=== PATIENT | male | born 1935 | race Caucasian/White ===

== ENCOUNTER 2018-12-28 20:25 | Inpatient (IN) | payer OTHER ==
[~2018-12-28] VITALS: Ht 180.3 cm; Wt 76.6 kg
[2018-12-28 21:04] LABS: BASOPHILS ABSOLUTE AUTO 0.02 K/mm3 (0.00-0.23); BASOPHILS PERCENT AUTO 0 % (0-2); EOSINOPHILS ABSOLUTE AUTO 0.02 K/mm3 (0.00-0.68); EOSINOPHILS PERCENT AUTO 0 % (0-6); Hematocrit 40.7 % (37.0-53.0); Hemoglobin 13.2 g/dL (13.5-17.5); IMMATURE GRAN ABSOLUTE AUTO 0.15 K/mm3 (0.00-0.10); IMMATURE GRAN PERCENT AUTO 2 % (0-1); LYMPHOCYTES ABSOLUTE AUTO 0.96 K/mm3 (0.84-5.20); LYMPHOCYTES PERCENT AUTO 11 % (21-46); MONOCYTES ABSOLUTE AUTO 0.34 K/mm3 (0.16-1.47); MONOCYTES PERCENT AUTO 4 % (4-13); Mean Corpuscular HGB 28.3 pg (26.0-34.0); Mean Corpuscular HGB Conc 32.4 g/dL (31.5-36.5); Mean Corpuscular Volume 87 fL (80-100); Mean Platelet Volume 10.7 fL (9.1-12.4); NEUTROPHILS PERCENT AUTO 83 % (41-73); Platelet Count 172 K/mm3 (150-400); RDW Coefficient Variation 14.6 % (11.7-14.2); RDW Standard Deviation 46.5 fL (35.1-46.3); Red Blood Cell Count 4.66 M/mm3 (4.30-5.90); White Blood Cell Count 8.89 K/mm3 (4.00-11.30)
[2018-12-28 21:25] LABS: Alanine Aminotransfer (ALT/SGP 17 U/L (12-78); Albumin, Blood 3.9 g/dL (3.4-5.0); Albumin/Globulin Ratio 1.2 (0.8-1.8); Alk Phos 158 U/L (50-136); Anion Gap 7 mmol/L (6-16); Aspartate Aminotrans (AST/SGOT 20 U/L (12-37); Blood Urea Nitrogen 21 mg/dL (8-24); Bun/Creatinine Ratio 28.1 (12.0-20.0); CO2, Blood 29 mmol/L (21-32); Calcium, Blood 9.2 mg/dL (8.5-10.1); Chloride, Blood 99 mmol/L (98-108); Creatinine, Blood 0.75 mg/dL (0.60-1.20); Globulin, Blood 3.3 g/dL (2.2-4.0); Glomerular Filtration Rate >60 (60-); Glucose, Blood 160 mg/dL (70-99); Potassium, Blood 4.2 mmol/L (3.5-5.5); Sodium, Blood 135 mmol/L (136-145); Total Protein, Blood 7.2 g/dL (6.4-8.2); Troponin I 0.077 ng/mL (0.000-0.040)
[2018-12-28] MEDS ORDERED: ASCO500 (22:00)
[2018-12-28] MEDS ORDERED: CARV6.25 PO (22:00)
[2018-12-28] MEDS ORDERED: CYAN500 PO (22:01)
[2018-12-28] MEDS ORDERED: FINA5 PO (22:02)
[2018-12-28] MEDS ORDERED: FISH OIL 1,001000 MG PO (22:02)
[2018-12-28] MEDS ORDERED: FURO20 PO (22:03)
[2018-12-28] MEDS ORDERED: FOLI1 PO (22:03)
[2018-12-28] MEDS ORDERED: GINKGO60 MG PO (22:04)
[2018-12-28] MEDS ORDERED: LISI20 PO (22:04)
[2018-12-28] MEDS ORDERED: Saw Palmetto160 MG PO (22:05)
[2018-12-28] MEDS ORDERED: POTCHL20ER PO (22:05)
[2018-12-28] MEDS ORDERED: TAMS.4ER PO (22:06)
[2018-12-28] MEDS ORDERED: BRAIN MIGHT-DH1 EACH PO (22:06)
[2018-12-28] MEDS ORDERED: ZINC220 PO (22:07)
[2018-12-29 03:26] LABS: Source, Urine Catheter
[2018-12-29 03:29] LABS: Bilirubin, Urine Neg (Neg); Blood, Urine 1+ (Neg); Glucose Qualitative, Urine Neg (Neg); Ketones, Urine Neg (Neg); Leukocyte Esterase, Urine Neg (Neg); Nitrite, Urine Neg (Neg); Protein, Urine 3+ (Neg); Urobilinogen, Urine NORM (Normal)
[2018-12-29 03:34] LABS: Appearance, Urine Clear (Clear); Color, Urine Yellow (P-Yellow)
[2018-12-29 03:35] LABS: Amorphous Light (0-Heavy); Bacteria Few /hpf; Calcium Oxalate Crystals Few /hpf; Mucus Light (0-Heavy); Red Blood Cells, Urine 0-2 /hpf (0-2); Squamous Epithelial Cells Not Seen /hpf (Few); White Blood Cells, Urine 0-2 /hpf (0-5)
[2018-12-29 03:36] LABS: Hyaline Casts 0-2 /lpf (0-2)
[2018-12-29 04:27] LABS: Hematocrit 38.5 % (37.0-53.0); Hemoglobin 12.3 g/dL (13.5-17.5); Mean Corpuscular HGB 28.6 pg (26.0-34.0); Mean Corpuscular HGB Conc 31.9 g/dL (31.5-36.5); Mean Platelet Volume 10.5 fL (9.1-12.4); Platelet Count 141 K/mm3 (150-400); RDW Coefficient Variation 14.7 % (11.7-14.2); RDW Standard Deviation 48.6 fL (35.1-46.3)
[2018-12-29 04:30] LABS: Mean Corpuscular Volume 90 fL (80-100)
--- NOTE | 2018-12-29 04:47 | NUR ---
PT. WITH IV TO THE LAC, SL. REPORT RECEIVED IV SITE WAS IN THE RIGHT.
[2018-12-29 04:48] LABS: Alanine Aminotransfer (ALT/SGP 16 U/L (12-78); Albumin, Blood 3.5 g/dL (3.4-5.0); Albumin/Globulin Ratio 1.1 (0.8-1.8); Alk Phos 153 U/L (50-136); Anion Gap 7 mmol/L (6-16); Aspartate Aminotrans (AST/SGOT 35 U/L (12-37); Bilirubin, Total 0.7 mg/dL (0.1-1.0); Blood Urea Nitrogen 21 mg/dL (8-24); CO2, Blood 29 mmol/L (21-32); Calcium, Blood 8.9 mg/dL (8.5-10.1); Chloride, Blood 101 mmol/L (98-108); Globulin, Blood 3.2 g/dL (2.2-4.0); Glomerular Filtration Rate >60 (60-); Glucose, Blood 135 mg/dL (70-99); Sodium, Blood 137 mmol/L (136-145); Total Protein, Blood 6.7 g/dL (6.4-8.2)
[2018-12-29 04:54] LABS: Troponin I 0.541 ng/mL (0.000-0.040)
--- NOTE | 2018-12-29 05:16 | NUR ---
RECEIVED CALL FROM LAB WITH CRITICAL TROPONIN OF 0.541. PT. IS ASYMPTOMATIC, NO APPARENT DISTRESS NOTED. DR. KOEHLER NOTIFIED, NO ORDERS RECEIVED. CHARGE NURSE TIFFANIE HUERTA RN MADE AWARE. WILL CONT TO MONITOR.
--- NOTE | 2018-12-29 05:59 | NUR ---
PT. ARRIVED FROM ER @0100 VIA STRETCHER INTO ROOM 306. TRANSFERRED INTO BED BY NURSING STAFF, PER PT UNABLE TO STAND DUE TO WEAKNESS AND BACK PAIN. PT. A&OX3, STATED SELF CATHS AT HOME DUE TO RETENTION AND WOULD NEED A INTERIANO CATHETER TO BE IN PLACE WHILE IN THE HOSPITAL. ORDER FOR INTERIANO CATHETER INSERTION RECEIVED BY DR. KOEHLER. PT. WITH ELEVATED BP OF 198/112, NO APPARENT DISTRESS NOTED. MEDICATED WITH HYDRALAZINE PER EMAR. REPEAT BP OF 159/92. PT. RESTING COMFORTABLY IN BED, NO APPARENT DISTRESS NOTED. DENIES NEEDS AT THIS TIME. DAUGHTER AT BEDSIDE. CALL LIGHT WITHIN REACH AND SIDE RAILS UP X2. WILL CONT TO MONITOR.
--- NOTE | 2018-12-29 11:45 | NUR ---
ASSUMED CARE / DR. CUELLAR / UPDATE: REPORT RECEIVED FROM MEDICAL FLOOR RN, PT ARRIVED TO ICU-14 AT APPROX 1005 FOLLOWING CTA IMAGING STUDY. ON ARRIVAL, THE PT IS A&O, PLEASANT & COOPERATIVE. HE HAS CONTINUED C/O UPPER BACK PAIN THAT HE STS IS CHRONIC & EXACERBATED BY THE MULTIPLE TRANSFERS FROM [facility] TO [facility], HOSPITAL ADMISSION, ETC. BP IS TRENDING DOWN, NITRO HELD UNTIL DR. CUELLAR AWARE. HEPARIN HELD UNTIL CTA RESULTED. PROVIDER AT BEDSIDE TO SEE PT. HE HAS SPOKEN W/ THE RADIOLOGIST REGARDING CTA RESULTS. 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 NITRO & HEPARIN DRIPS HAVE BEEN D/C'd & PALLIATIVE CARE CONSULT HAS BEEN PLACED. CONSULT FOR CARDIOLOGY HAS ALSO BEEN D/C'd & DR. JARRELL HAS BEEN NOTIFIED OF THIS CANCELLATION BY DR. CUELLAR. WILL CONTINUE TO MONITOR & UPDATE NEEDED.
[2018-12-29 12:11] LABS: Prothrombin Time Results 10.6 Sec (9.7-11.5)
--- NOTE | 2018-12-29 12:38 | NUR ---
PT RESTING QUIETLY WITH EYES CLOSED DURING SHIFT REPORT. PT ADMITTED FOR HYPERTENSION. PER SHIFT REPORT, PT C/O CP X 2DAYS WITH SOB. HX OF HTN AND FL. PT MEDICATED PRIOR TO START OF SHIFT FOR C/O BACK PAIN. PT LATER REPORTED THAT HE HAD MIDSTERNUM PAIN ORIGINALLY BUT NOW RADIATING IN HIS BACK. CRITICAL TROPONIN CALLED TO NOC SHIFT. NO NEW ORDERS. INTERIANO TO GRAVITY; PATENT. PT REPORTED THAT HE SELF CATH'S AT HOME, THEREFORE INTERIANO PLACED IN ER. PT DECLINED TO EAT BREAKFAST HE DID NOT WANT TO HAVE TO MOVE TO HAVE A BM. PT'S DAUGHTERS TO RM AFTER START OF SHIFT, REPORTING PT WITH HX OF CHF WELL. IV LASIX GIVEN WITH AM MEDS. DR CUELLAR IN TO SEE PT THIS AM. NEW ORDERS RECEIVED. PT TO CT TO R/O AORTIC DISSECTION, THEN TO TX TO ICU 14 TO BE PLACED ON NITRO DRIP AND HEPARIN DRIP. PT NOT TO BE PLACED ON HEPARIN DRIP UNTIL CT COMPLETE. PT TX TO ICU FROM RADIOLOGY. CARDIOLOGY TO FOLLOW PT IN ICU. DR CUELLAR REPORTED THAT HE SPOKE WITH DR JARRELL. REPORT CALLED TO WET POUR MIXER.
[2018-12-29 14:26] LABS: Troponin I 0.519 ng/mL (0.000-0.040)
--- NOTE | 2018-12-29 14:30 | NUR ---
Initial Visit: Received consult for end of life and symptom managment. Pt is alert, oriented. He reports 10/10 pain. He is laying in bed, not moving. He states if he moves at all, he is in a great deal of pain. Pt is very tense. He doesn't report anxiety, he states he isn't sure if he is experiencing anxiety. Explained to him that being in the hospital is especially stressful, and he was given some bad news about his health today: May be experiencing racing thoughts, intrusive thoughts, thoughts that won't go away, even when he tries... He states that he IS experiencing some of these things. Pt will not elaborate on anything else that he is thinking at this time. He denies shortness of breath at this time, and he is breathing easily. Requested pain medication from nurse. Explained earlier medication - fentanyl - and how Dilaudid differs; pain coverage, requesting pain medication when starts becoming too much for him. He verbalizes understanding, but his daughters report that he is stoic and will NOT request medication. Will reinforce q visit. At bedside, there are two daughters. Pt had two families, daughter reports. The daughters have a wide 20+ year age gap. The daughters present are the decision makers, Renea and Maricelgarret. They are his closest family members and live locally. Pt is snoring softly part way through the visit after receiving pain medication. Spoke with daughter about how he came to be in the hospital, she reports that she checked on patient at home and called 911 when he wasn't able to breathe. Renea reports that he was feeling ill for a long time before he came to the ER. She had tried to get him an appointment and he refused to go. She is actually quite mad at him for not going sooner, and she is certainly mad that he "did not follow my advise and follow up" for his prostate cancer, as she thought he needed to years ago. He has been self-cathing for a while at home occasionally. He lives independently, for about 2 years since his from cancer. He has been a very active individual his whole life. Card provided to daughter. Will follow up tomorrow for symptom management. Pt has already filled out a POLST form. This was faxed to medical records for scanning into [employer]. Pt and daughters waiting for oncology for next steps. Daughter reports that she is going to file FMLA so that she can be available for him.
--- NOTE | 2018-12-29 14:31 | NUR ---
[facility] Initial visit: Met with Mr. Fisher, his two adult dtrs, and one grand-daughter. Family appears devoted, loving, and reasonable. All verbalize understanding that pt has been diagnosed with cancer. Mr. Fisher tells me he is in unbearable pain and "would rather than go through this." RN in room and immediately medicated pt. Pt has a life-long chichi and states that he is not afraid of , but is afraid of suffering. He also says he doubts he will do anything about his cancer. Family asked about hospice, and I provided education that was well recieived. POLST and AD completed. POLST awaiting physician's signature. Mr. Fisher would like to be a DNR with limited interventions. AD witnessed and signed. I hand-carried a copy to Medical Records. Pt allowed prayer at bedside. I will remain available to pt and family.
--- NOTE | 2018-12-29 18:07 | NUR ---
SHIFT SUMMARY: NO ACUTE CHANGES SINCE PRIOR UPDATES. PT REMAINS A&O, PLEASANT & COOPERATIVE. HE HAS BEEN RESTLESS W/ INCREASED PAIN BUT WAS ABLE TO SLEEP FOR A WHILE AFTER DILAUDID ADMIN PER EMAR. PT STS THIS WORKS BETTER TO CONTROL HIS PAIN THAN FENTANYL. HE REMAINS VERY PAINFUL W/ ANY MVMT & IS REFUSING TO BE FULLY REPOSITIONED IN BED OR GET OOB. LS ARE DIM IN BASES, 2L NC W/ O2 SATS > 92%. PT DOES NOT USE HOME O2. MONITOR SHOWS SR W/ BBB & PACs. HR AVG 70s, HTN IMPROVING. BT x4, ABD SOFT & NONTENDER TO PALPATION. INTERIANO PATENT/DRAINING CLEAR YELLOW URINE. SKIN OVERALL CDI. PLANS FOR PT TO BE TRANSFERRED TO PCU-06 AT SHIFT CHANGE. WILL CONTINUE TO MONITOR & REPORT OFF TO SALES MGR TO ASSUME CARE.
[2018-12-30 04:21] LABS: BASOPHILS ABSOLUTE AUTO 0.01 K/mm3 (0.00-0.23); BASOPHILS PERCENT AUTO 0 % (0-2); EOSINOPHILS ABSOLUTE AUTO 0.01 K/mm3 (0.00-0.68); EOSINOPHILS PERCENT AUTO 0 % (0-6); Hematocrit 38.2 % (37.0-53.0); Hemoglobin 12.2 g/dL (13.5-17.5); IMMATURE GRAN ABSOLUTE AUTO 0.06 K/mm3 (0.00-0.10); IMMATURE GRAN PERCENT AUTO 1 % (0-1); LYMPHOCYTES ABSOLUTE AUTO 1.04 K/mm3 (0.84-5.20); LYMPHOCYTES PERCENT AUTO 11 % (21-46); MONOCYTES ABSOLUTE AUTO 0.86 K/mm3 (0.16-1.47); MONOCYTES PERCENT AUTO 9 % (4-13); Mean Corpuscular HGB 28.6 pg (26.0-34.0); Mean Corpuscular HGB Conc 31.9 g/dL (31.5-36.5); Mean Corpuscular Volume 90 fL (80-100); Mean Platelet Volume 10.8 fL (9.1-12.4); NEUTROPHILS ABSOLUTE AUTO 7.25 K/mm3 (1.96-9.15); NEUTROPHILS PERCENT AUTO 79 % (41-73); Platelet Count 162 K/mm3 (150-400); RDW Coefficient Variation 15.1 % (11.7-14.2); RDW Standard Deviation 49.4 fL (35.1-46.3); Red Blood Cell Count 4.27 M/mm3 (4.30-5.90); White Blood Cell Count 9.23 K/mm3 (4.00-11.30)
[2018-12-30 04:40] LABS: Anion Gap 8 mmol/L (6-16); Blood Urea Nitrogen 23 mg/dL (8-24); CO2, Blood 31 mmol/L (21-32); Calcium, Blood 9.1 mg/dL (8.5-10.1); Chloride, Blood 94 mmol/L (98-108); Creatinine, Blood 0.79 mg/dL (0.60-1.20); Glomerular Filtration Rate >60 (60-); Glucose, Blood 123 mg/dL (70-99); Potassium, Blood 4.1 mmol/L (3.5-5.5); Sodium, Blood 133 mmol/L (136-145)
--- NOTE | 2018-12-30 06:29 | NUR ---
SHIFT SUMMARY: PATIENT NEEDING PAIN MEDICATION MORE OFTEN, INTERMITTENT CONFUSION AND AGGITATION. PATIENTS DAUGHTER TRAN STAYED THE NIGHT WITH PATIENT, PATIENT ATTEMPTED TO GET OOB UNATTENDED D/T THINKING HE WAS HOME IN A RECLINER MOST OF THE SHIFT. FAMILY STATES THEY WILL BE WITH HIM A MAJORITY OF THE TIME TO HELP HIM STAY COMPLIANT THROUGH HIS CONFUSION. BED LOW AND LOCKED WITH EXIT ALARM ON AND CALL LIGHT WITHIN REACH.
--- NOTE | 2018-12-30 08:04 | NUR ---
DR PARKINSON TO SEE PATIENT AND DISCUSSED CANCER TREATMENT OPTIONS THAT INCLUDED RADIATION WELL MEDICAL OPTIONS. PT EXPLAINED THAT HIS PAIN HAS BEEN COMING ON FOR ABOUT A YEAR. WILL PROVIDE COMMUNICATION OPPORTUNITY FOR PATIENT AND FAMILY TO CONTINUE WITH CARE AND PALLATIVE CONSULT.
--- NOTE | 2018-12-30 11:53 | NUR ---
[facility] note: Met with pt and his dtr, Selene, at bedside. Mr. Fisher tells me he is ready to "go." He expressed a deep chichi and says he is looking forward to being with Terrell. His primary concern is pain management. He is wanting to be home with hospice services. He used hospice when his 3 years ago. He understands hospice benefits and philosophy. The only reason he is considering Dr. Dominguez's recommendation for radiation is for pain management. If there is another way to manage his pain so he can be home, he'd like to pursue it. Dtr, Selene is tearful, but is in full support of her father's wishes. Her only concern is getting medical equipment into the home via hospice before her dad comes home. Apparently, when pt's spouse went on hospice, they did not have "anything" they needed for several days. "It was horrible." I provided theraputic listening and student financial services counselor to Selene outside of room to good effect. Educated on care-spinner hand stress and strongly encouraged allowing family to help. Mr. Fisher enjoyed sharing his chichi story with me. I affirmed his beleifs and prayed for a peaceful transition at his request. Informed RN of pt's wishes. I will continue to support pt and family as schedule permits.
--- NOTE | 2018-12-30 12:47 | NUR ---
PT AND DAUGHTER TRAN (POA) MET WITH RADHA IN REGARDS TO CONTINUING POC. PT STATES HE WOULD LIKE TO GO HOME ON HOSPICE AND WOULD LIKE TO BE COMFORTABLE. HE STATED THAT IT WOULD BE OKAY TO USE THE RADIATION, BUT HIS MAIN GOAL IS TO BE PAIN FREE AT THIS POINT, AND TO GO HOME. CALLED DR. PINZON TO INFORM HIM OF THE PATIENT WISHES. WILL AWAIT HIS RETURN CALL FOR CONTINUED ORDERS.
--- NOTE | 2018-12-30 14:12 | NUR ---
Met with family pt resting. Nursing advised they are interested in hospice and palliative radiation. Review of plan of care with family. Daughter has FMLA papaers she needs help with and will be staying with her father. They relay that they have extended family help. they will need equipment. Review of hospice care companies with jin who know community they chose [facility]. met with pharmacist to review equigesic dosing for long acting and short acting medications. updated [facility] liason on plan of care.
--- NOTE | 2018-12-30 18:37 | NUR ---
PT HAD A GOOD DAY TODAY, HE HAS HAD FAMILY AT BEDSIDE THROUGHOUT THE SHIFT. PT AND FAMILY SPOKE WITH PALLIATIVE AND PASTORAL CARE TODAY AND REQUESTED TO HAVE PATIENT CONTINUE A COMFORT CARE PATIENT THAT WILL DISCHARGE WITH HOME HEALTH. THE PT IS VERY COMFORTABLE WITH THIS DECISION AND THROUGHOUT THE DAY EXPRESSED TO THIS RN THAT HE IS "READY FOR THE LORD TO TAKE HIM HOME." PT IS CONTENT AND HAPPY TO HAVE FAMILY VISITING. POC TO TRANSPORT PT TO [facility] TOMORROW 12/31 AT 1:00 PM, FOR CT TO SET UP RADIATION PLAN FOR RADIATING ON 01/01 AT 12:00 PM. THIS RN CALLED [facility] AND SET UP TRANSPORT VIA GURNEY FOR 12/31, TELEPHONE INFORMATION SUPERVISOR TIME OF 12:30, THEN AGAIN ON 01/01, TELEPHONE INFORMATION SUPERVISOR TIME AT 11:30. PT FAMILY AWARE OF THE APPOINTMENTS AND TRANSPORT PLAN. HOSPICE IN ROOM WORKING WITH FAMILY ON PLAN TO SET THINGS IN HOME SO THEY ARE PREPARED FOR DISCHARGE. CONTINUED TO MONITOR PATIENT PAIN LEVELS AND TREAT ACCORDINGLY. WILL CONTINUE TO MONITOR AND GIVE REPORT TO NOC RN.
--- NOTE | 2018-12-31 04:54 | NUR ---
SHIFT SUMMARY: PATINT SLEPT WELL THIS SHIFT WITH ADEQUATE PAIN MANAGEMENT, REFUSED MAJORITY OF REPOSITIONING. PATIENT FAMILY AT BEDSIDE, PATIENT REFUSED LABS THIS AM. NO OTHER ISSUES NOTED, COMFORT MAINTAINED FOR PATIENT.
--- NOTE | 2018-12-31 08:12 | NUR ---
pt laying in bed visiting with daughter, a/ox3, pleasant and cooperative with care, states he is comfortable at this time, no needs at this time. encouraged daughter to call if anything is needed or if he is having pain. plan is to go to cancer center for radiation tx for pallative care around 1230. call light in reach.
--- NOTE | 2018-12-31 13:30 | NUR ---
PT HAS LEFT VIA [facility], HE WILL BE GOING TO MEDICAL FLOOR WHEN HE RETURNS. MEDICATED FOR PAIN RIGHT BEFORE HE LEFT. DAUGHTER HAS BEEN WITH HIM ALL MORNING, REPORT GIVEN TO LION RODRIGUEZ. ALL BELONGINGS TAKEN TO NEW ROOM.
--- NOTE | 2018-12-31 15:15 | NUR ---
PT TRANSFERRED TO ROOM 356 AND THEN 358 FOR BETTER ROOM SPACE. DAUGHTER AT BEDSIDE. SETTLED IN TO ROOM AFTER COMING FROM [facility]. REPORT GIVEN TO EDIN RODRIGUEZ.
--- NOTE | 2018-12-31 17:41 | NUR ---
SHIFT SUMMARY/COMFORT CARE PATIENT MEDICATED SEVERAL TIMES THIS SHIFT FOR PAIN. PATIENT DENIES NAUSEA AND SHORTNESS OF BREATH. RESTING IN BED AND VISITING WITH DAUGHTER THIS AFTERNOON. PATIENT PLEASANT AND COOPERATIVE. PATIENT CAN BE FORGETFUL AT [place], BED ALARM ON FOR SAFETY. CALL LIGHT IN REACH, WILL CONTINUE TO MONITOR.
--- NOTE | 2018-12-31 18:19 | NUR ---
[facility] note: Mr. Fisher was alone in room. He appears to be feeling much better with great pain management by nursing. He spoke to me about his son who is a dissapointment. He also shared the loss of two of his children in infancy. He appears to be processing end-of-life. We prayed together for his children at his request. He is "ready when God is." [employer] will remain available.
--- NOTE | 2018-12-31 19:26 | NUR ---
pt to treament today need to review and adjust for long acting pain medication. plan is treatment tomorrow.
--- NOTE | 2019-01-01 05:20 | NUR ---
SHIFT SUMMARY: 83 Y/O MALE SLEPT COMFORTABLY ALL SHIFT WITH DAUGHTER AT SIDE WHOM VERY SUPPORTIVE. DAUGHTER GIVEN COPY OF [facility] DOCUMENTATION THAT MD SIGNED FOR HER (ORIGINAL ON CHART) SHE INTENDING CARE FOR FATHER DURING HOSPICE CARE PERIOD. PT ALERT AND ORIENTED X 4. PT TOOK ROXANOL 20MG SL FOR GENERALIZED BACK PAIN WITH RELIEF FELT. PT DENIES NAUSEA. INTERIANO CATHETER DRAINING CLEAR YELLOW FLUID, WEARING O2 AT 2L/M PER NASAL CANNULA. PT IS CURRENTLY ON COMFORT CARE. PTS BED ALARM APPLIED, BED LOW POSITION, CALL LIGHT AT SIDE.
--- NOTE | 2019-01-01 13:03 | NUR ---
PT RETURNED TO ROOM FROM RADIATION, INTERIANO BAG SMALL HOLE LEAKING AT TOP. NOTIFIED/REQUESTED AIDE CHANGE BAG. CHECK SHEETS IF NEED CHANGE. SHE TO HANDLE.
--- NOTE | 2019-01-01 17:14 | NUR ---
COMFORT CARE PATIENT MEDICATED X 2 FOR PAIN THIS SHIFT. DENIES NAUSEA AND SHORTNESS OF BREATH. TRANSPORTED TO CANCER CENTER FOR PALLIATIVE RADIATION THIS MORNING. DAUGHTER AT BEDSIDE. HOSPICE DISCAHRGE PLANNED FOR FRIDAY.
--- NOTE | 2019-01-01 19:00 | NUR ---
Comfort Care: Pt appears to be resting with eyes closed. Spoke to his daughters. They report that he doesn't always request pain medicaitons, even when they are aware he is in pain. They request pain medication from nursing when he "starts getting grumpy." They do not have concerns at this time. They are delighted that he is finally comfortable. Will remain available.
--- NOTE | 2019-01-01 21:25 | NUR ---
PT SWALLOWED MEDS WHOLE WITH WATER WITHOUT DIFFICULTY. NO NEEDS AT THIS TIME. INTERIANO DRAINING YELLOW URINE. DAUGHTER AT BEDSIDE. CALL LT IN REACH.
--- NOTE | 2019-01-01 22:32 | NUR ---
PT RESTING QUIETLY. DAUGHTER AWAKE AT BEDSIDE STATES ALL IS FINE.
--- NOTE | 2019-01-02 05:05 | NUR ---
SHIFT SUMMARY: PT RESTED WELL T/O SHIFT. NO ACUTE CHANGES. PT ALERT AND ORIENTED FOR THE MOST PART. ABLE TO CARRY ON CONVERSATION WITH FAMILY AND VISITORS. DAUGHTER AT BEDSIDE T/O SHIFT. INTERIANO BAG PATENT AND DRAINING YELLOW URINE. NO ACUTE CHANGES. WILL CONTINUE TO MONITOR AND PROVIDE CARE UNTIL SHIFT REPORT.
--- NOTE | 2019-01-02 06:27 | NUR ---
PT RESTED T/O SHIFT AND REQUIRED NO PAIN MEDICATION. THIS MORNING HE DENIES PAIN AND HE LOOKS COMFORTABLE. DAUGHTER AT BEDSIDE. CALL LT IN REACH.
--- NOTE | 2019-01-02 16:04 | NUR ---
SHIFT SUMMARY PT RESTING QUIETLY FOWLERS, DURING SHIFT REPORT. PLEASANT. REPORTED THAT HE SLEPT WELL. PAIN IMPROVED GREATLY TODAY, AFTER RADIATION TX YESTERDAY. MEDICATED PER EMAR D/T SITTING UPRIGHT IN BED. PT REPORTS PAIN IN BACK WHEN HAVING TO SIT UP FOR MEALS OR GET UP TO BSC. VERY LRG, SOFT BM TODAY. PT ON COMFORT CARE D/T PROSTATE CA WITH METS TO SPINE. PT TO GO HOME ON HOSPICE WHEN SET UP AT HOME. DAUGHTER AT BS MOST OF THE TIME. MANY VISITORS IN AND OUT OF . CALL LT IN REACH. ABLE TO MAKE NEEDS KNOWN.
--- NOTE | 2019-01-02 19:42 | NUR ---
PT DENIES PAIN MOST OF THE TIME, BUT REPORTS PAIN STARTS WHEN HE HAS TO SET UP FOR MEALS. PT MEDICATED PER EMAR AND REPOSITIONED PER PT ALLOWING.
--- NOTE | 2019-01-03 05:30 | NUR ---
pt claims he is comfortable on prn morphine sulfate to control pain and dyspnea. DTR at bedside and supportive. Alert and talkative about [facility] service. DIscussing home with Hospice and DTR when care arranged.
--- NOTE | 2019-01-03 15:52 | NUR ---
SHIFT SUMMARY NO ACUTE CHANGES TO PRESENT THIS SHIFT. PT REMAINS ON COMFORT CARE D/T PROSTATE CA WITH METS TO SPINE. DR PINZON IN TO SEE PT IN AM; NEW ORDERS PLACED. PT HAS BEEN MEDICATED PER EMAR, CALLS FOR PAIN MEDICATION NEEDED OR HAS DAUGHTER COME OUT AND ASK. PLAN TO D/C HOME ON HOSPICE IN AM, WHEN SET UP. DAUGHTER AT BS, STAYS ALMOST ALL OF THE TIME. MULTIPLE VISITORS IN/OUT. CALL LT IN REACH.
--- NOTE | 2019-01-03 20:21 | NUR ---
pt resting quietly .DTR in room and very supportive. [place], on oxygen 2 l nc
--- NOTE | 2019-01-04 00:48 | NUR ---
MEDICATED FOR PAIN WITH ROXINOL 20 MG AND DAIR HUNGER.
--- NOTE | 2019-01-04 06:07 | NUR ---
PT CONCERNED ABOUT GOING HOME ON HOSPICE, CONCERNED THAT FAMILY WILL BE UNABLE TO CARE FOR HIM, SUPPORT OFFERED.
[2019-01-04] MEDS ORDERED: LORA1 PO (10:54)
[2019-01-04] MEDS ORDERED: LIDO700A20 TOP (10:54)
[2019-01-04] MEDS ORDERED: MORP20L SL (10:55)
[2019-01-04] MEDS ORDERED: MORP15ER PO (10:56)
[2019-01-04] MEDS ORDERED: PANT20 PO (10:56)
[2019-01-04] MEDS ORDERED: Metamucil Smooth1 EA PO (10:57)
[2019-01-04] MEDS ORDERED: GAVILAX17 GM PO (10:57)
--- NOTE | 2019-01-04 11:33 | NUR ---
DISCHARGE PT DISCHARGED TO HOME WITH HOSPICE. DAUGHTER HAS WRITTEN PRESCRIPTION FOR MS CONTIN AND HAS OXYGEN. PT TRANSFERRED VIA GURNEY. PAIN MEDICATION GIVEN BEFORE DISCHARGE FOR COMFORT.
== END 2019-01-04 11:13 | disposition hospice, home (50) | DRG 280 ==
LOC: ER 20:25 → ICUW 20:26 → MEDS 20:26 → ICUW 12-29 09:56 → MEDS 12-29 15:22 → PCU 12-29 15:22 → ICUW 12-29 15:23 → PCU 12-29 19:20 → MEDS 12-31 13:06 → ENPENDDIS 01-04 10:34 → MEDS 01-04 11:13
PROVIDERS: Emergency Medicine; Internal Medicine; ADMIT Internal Medicine
DX: I11.0 Hypertensive heart disease with heart failure (principal); J96.01 Acute respiratory failure with hypoxia; I21.A1 Myocardial infarction type 2; I50.31 Acute diastolic (congestive) heart failure; I16.9 Hypertensive crisis, unspecified; C79.51 Secondary malignant neoplasm of bone; Z66 Do not resuscitate; I25.2 Old myocardial infarction; Z79.82 Long term (current) use of aspirin; Z79.02 Long term (current) use of antithrombotics/antiplatelets; I71.4 Abdominal aortic aneurysm, without rupture; C61 Malignant neoplasm of prostate; I25.10 Atherosclerotic heart disease of native coronary artery without angina pectoris; Z51.5 Encounter for palliative care; I44.7 Left bundle-branch block, unspecified
CPT/HCPCS: 36415; 71046; 71275; 74175; 80048; 80053; 81001; 82550; 83880; 84153; 84484; 85025; 85027; 85610; 85730; 93005; 93010; 93306; 96372; 96374; 96375; 96376; 99285-25; C9113; G0378; J1100; J1170; J1650; J1940; J2270; J2405; J3010; Q9967